=== PATIENT | male | born 1970 | race Caucasian/White ===

== ENCOUNTER 2018-05-25 16:57 | Emergency (ER) | payer BC ==
[2018-05-25] MEDS ORDERED: CEFAZOLIN 1 GM VIAL ONE (17:10)
[2018-05-25] MEDS ORDERED: Adacel (T-DAP) 0.5 ML SYRINGE ONE (17:22)
[2018-05-25] MEDS ORDERED: Ketorolac Tromethamine 30 MG/ML VIAL ONE (17:22)
[2018-05-25] MEDS ORDERED: Morphine 4 MG/ML VIAL ONE (17:22)
[2018-05-25 17:54] LABS: #Basophils 0.1 thou/uL (0.0-0.2); #Eosinphils 0.2 thou/uL (0.0-0.7); #Monocytes 0.7 thou/uL (0.11-0.59); #Neutrophils 7.3 thou/uL (1.40-6.50); %Basophils 1.1 % (0.0-1.0); %Eosinophils 1.7 % (0.0-10.0); %Lymphocytes 26.1 % (21.0-51.0); %Monocytes 6.3 % (0.0-10.0); %Neutrophils 64.8 % (42.0-75.0); Hemoglobin 15.8 g/dL (14.0-18.0); Mean Corpuscular HGB CONC 32.6 g/dL (32.0-36.0); Mean Corpuscular Hemoglobin 29.7 pg (27.0-31.0); Mean Corpuscular Volume 90.9 fL (78.0-98.0); Mean Platelet Volume 7.9 fL (7.4-10.4); Platelet Count 215 thou/uL (130-400); RBC Distribution Width 11.9 % (11.5-14.5); Red Blood Cell (RBC) Count 5.32 mill/uL (4.70-6.10); White Blood Cell (WBC) Count 11.3 thou/uL (4.8-10.8)
[2018-05-25 18:10] LABS: ALT (SGPT) 30 U/L (8-55); AST (SGOT) 20 U/L (5-34); Albumin 3.9 g/dL (3.5-5.0); Alkaline Phosphatase 75 U/L (40-150); Anion Gap 13 mmol/L (10-20); BUN (Urea Nitrogen) 14 mg/dL (8.9-20.6); Bilirubin, Total 1.1 mg/dL (0.2-1.2); Calc. Creatinine Clearance 0 mL/min (70-130); Calcium 9.2 mg/dL (7.8-10.44); Carbon Dioxide 24 mmol/L (22-29); Chloride 106 mmol/L (98-107); Estimated GFR-MDRD Greater than 90; Globulin 2.8 g/dL (2.4-3.5); Glucose 110 mg/dL (70-105); Potassium 3.6 mmol/L (3.5-5.1); Protein, Total 6.7 g/dL (6.0-8.3); Sodium 139 mmol/L (136-145)
[2018-05-25 18:33] LABS: Bilirubin Negative (Negative); Blood, Urine Negative (Negative); Clarity CLEAR (Clear); Glucose, Urine (Dipstick) Negative (Negative); Leukocyte Negative (Negative); Nitrite Negative (Negative); Protein, Urine (Dipstick) Negative (Neg-Trace); Specific Gravity, Urine 1.026 (1.002-1.036)
--- NOTE | 2018-05-25 19:49 | RAD ---
RADIOGRAPH LEFT HAND THREE VIEWS: DATE: 05-25-18 TIME: 5:08 p.m. History: 47-year-old male status post acute traumatic injury to the hand. FINDINGS: There is soft tissue lucency representing large laceration across the hypothenar soft tissues, extend ing to overlie the diaphysis of the fourth metacarpal. Visible only on the oblique view, there appear s to be overlap of two osseous structures at the region of the proximal metaphysis of the 3rd metacar pal. This is not visible on the other views. Otherwise, the rest of the bones appear normal. No dislo cation. IMPRESSION: 1. Soft tissue lacerations of the hand. 2. Questionable mildly displaced fracture at proximal metaphysis of third metacarpal visible only on one view. Uncertain whether this is actual fracture or artifact. Consider CT. POS: JIN
== END 2018-05-25 19:00 | disposition short-term general hospital (02) ==
LOC: ERS 16:57
DX: S61.402A Unspecified open wound of left hand, initial encounter (principal); K21.9 Gastro-esophageal reflux disease without esophagitis; E78.5 Hyperlipidemia, unspecified; F32.9 Major depressive disorder, single episode, unspecified; F17.210 Nicotine dependence, cigarettes, uncomplicated; Z79.899 Other long term (current) drug therapy; W34.00XA Accidental discharge from unspecified firearms or gun, initial encounter
CPT/HCPCS: 20552; 36415; 80053; 81003; 85025; 90471; 90715; 96365; 96375; J0690; J1885; J2270

== ENCOUNTER 2020-04-01 12:39 | Outpatient (CLI) | payer BC, OTHER ==
--- NOTE | 2020-04-01 12:59 | RAD ---
Exam:4 views left knee HISTORY: Pain. COMPARISON: None FINDINGS: Mild tricompartmental degenerative change. No fractures. No significant joint fluid. IMPRESSION: Mild tricompartmental degenerative change.
== END 2020-04-01 12:40 | disposition home or self-care (01) ==
LOC: BICRAD 12:39
PROVIDERS: ATTEND Internal Medicine
DX: M25.562 Pain in left knee (principal); M17.12 Unilateral primary osteoarthritis, left knee